=== PATIENT | male | born 1935 | race Two or more races ===

== ENCOUNTER 2024-07-21 19:31 | Inpatient (IN) | payer OTHER ==
[~2024-07-21] VITALS: Ht 180.3 cm; Wt 81.5 kg
--- NOTE | 2024-07-21 20:01 | ED.PDOC ---
Altered Mental Status HPI Comments 89-year-old male who came to ER via EMS due to altered level of consciousness. Per EMS, initial call for altered level of consciousness, as patient had a witnessed seizure like episode by family members followed by urinary incontinence and confusion/ disorientation. Patient has no history of seizures. Upon arrival of paramedics, patient now fully awake, currently complaining of back pains, flank pains, dysuria and foul smelling urine. Patient does have history of hypertension and recurrent UTIs. Chief Complaint: ALOC Time Seen by MD: 20:01 Reviewed Notes: Nurses Notes Allergies: Coded Allergies: NO KNOWN ALLERGIES (Unverified , 07/21/24) Information Source: Patient Mode of Arrival: EMS Severity: Moderate Timing: Minutes Duration: Minutes Prehospital treatment: None Quality: Decreased Alertness, Change in Behavior, Confusion Recent: None History of: None Associated Signs and Symptoms: None Past Medical History PAST MEDICAL HISTORY: HTN, UTI'S Surgical History: Pacemaker Family History Family History: Reviewed,noncontributory to illness Social History Smoker: Non-Smoker Alcohol: Denies ETOH Use Drugs: Denies Drug Use Lives In: Home Constitutional: denies: chills, diaphoresis, fatigue, fever, malaise, sweats, weakness, others EENTM: denies: blurred vision, double vision, ear bleeding, ear discharge, ear drainage, ear pain, ear ringing, eye pain, eye redness, hearing loss, mouth pain, mouth swelling, nasal discharge, nose bleeding, nose congestion, nose pain, photophobia, tearing, throat pain, throat swelling, voice changes, others Respiratory: denies: cough, hemoptysis, orthopnea, SOB at rest, shortness of breath, SOB with excertion, stridor, wheezing, others Cardiovascular: denies: chest pain, dizzy spells, diaphoresis, Dyspnea on exertion, edema, irregular heart beat, left arm pain, lightheadedness, palpitations, PND, syncope, others Gastrointestinal: denies: abdomen distended, abdominal pain, blood streaked bowels, constipated, diarrhea, dysphagia, difficulty swallowing, hematemesis, melena, nausea, poor appetite, poor fluid intake, rectal bleeding, rectal pain, vomiting, others Genitourinary: reports: dysuria, flank pain, others (Foul-smelling urine); denies: burning, frequency, hematuria, incontinence, penile discharge, penile sore, pain, testicle pain, testicle swelling, urgency Neurological: denies: dizziness, fainting, headache, left sided numbness, left sided weakness, numbness, paresthesia, pre-existing deficit, right sided numbness, right sided weakness, seizure, speech problems, tingling, tremors, weakness, others Musculoskeletal: reports: back pain; denies: gout, joint pain, joint swelling, muscle pain, muscle stiffness, neck pain, others Integumetry: denies: bruises, change in color, change in hair/nails, dryness, laceration, lesions, lumps, rash, wounds, others Allergic/Immunocompromised: denies: Difficulty Healing, Frequent Infections, Hives, Itching, others Hematologic/Lymphatic: denies: anemia, blood clots, easy bleeding, easy bruising, swollen glands, others Endocrine: denies: excessive hunger, excessive sweating, excessive thirst, excessive urination, flushing, intolerance to cold, intolerance to heat, unexplained weight gain, unexplained weight loss, others Psychiatric: denies: anxiety, bipolar disorder, depression, hopeless, panic disorder, schizophrenia, sleepless, suicidal, others Physical Exam General Appearance: No Apparent Distress, Normal HEENT: Normal ENT Inspection, Pharynx Normal, TMs Normal Neck: Full Range of Motion, Non-Tender, Normal, Normal Inspection Respiratory: Chest Non-Tender, Lungs Clear, No Accessory Muscle Use, No Respiratory Distress, Normal Breath Sounds Cardiovascular: No Edema, No JVD, No Murmur, No Gallop, Normal Peripheral Pulses, Regular Rate/Rhythm Breast Exam: Deferred Gastrointestinal: No Organomegaly, Non Tender, No Pulsatile Mass, Normal Bowel Sounds, Soft Genitalia: Deferred Pelvic: Deferred Rectal: Deferred Extremities: No calf tenderness, Normal capillary refill, Normal inspection, Normal range of motion, Non-tender, No pedal edema Musculoskeletal : Apperance: Normal Neurologic: Alert, senior education specialist II-XII nml as Tested, No Motor Deficits, Normal Affect, Normal Mood, No Sensory Deficits Cerebellar Function: Normal Reflexes: Normal Skin: Dry, Normal Color, Warm Lymphatic: No Adenopathy Was a procedure done? Was a procedure done?: No Differential Diagnosis (ALOC) Differential Diagnosis: Dehydration, Encephalopathy, Sepsis, Hypoxemia, Seizure, Renal Failure X-Ray, Labs, Meds, VS Vital Signs Date Time Temp Pulse Resp B/P (MAP) Pulse Ox O2 Delivery O2 Flow Rate FiO2 07/21/24 19:31 97.9 88 20 130/82 (98) 97 Lab Test 07/21/24 20:55 Range/Units White Blood Count 6.1 4.4-10.8 10^3/uL Red Blood Count 5.04 4.5-5.90 10^6/uL Hemoglobin 12.4 L 13.5-17.5 g/dL Hematocrit 38.5 L 41.0-53.0 % Mean Corpuscular Volume 76.4 L 80.0-100.0 fL Mean Corpuscular Hemoglobin 24.6 L 28.0-32.0 pg Mean Corpuscular Hemoglobin Concent 32.3 32.0-36.0 g/dL Red Cell Distribution Width 17.4 H 11.8-14.3 % Platelet Count 139 L 140-450 10^3/uL Mean Platelet Volume 7.5 6.9-10.8 fL Neutrophils (%) (Auto) 70.2 37.0-80.0 % Lymphocytes (%) (Auto) 18.8 10.0-50.0 % Monocytes (%) (Auto) 9.2 0.0-12.0 % Eosinophils (%) (Auto) 1.4 0.0-7.0 % Basophils (%) (Auto) 0.4 0.0-2.0 % Neutrophils # (Auto) 4.3 1.6-8.6 10 ^3/uL Lymphocytes # (Auto) 1.1 0.4-5.4 10 ^3/uL Monocytes # (Auto) 0.6 0-1.3 10 ^3/uL Eosinophils # (Auto) 0.1 0-0.8 10 ^3/uL Basophils # (Auto) 0 0-0.2 10 ^3/uL Nucleated Red Blood Cells 0.1 % Prothrombin Time 10.9 9.3-11.8 sec Prothrombin Time INR 1.03 0.9-1.15 Activated Partial Thromboplast Time 25.1 24.5-34.5 SEC Sodium Level 142 136-145 mmol/L Potassium Level 3.9 3.5-5.1 mmol/L Chloride Level 111 H 98-107 mmol/L Carbon Dioxide Level 24 20-31 mmol/L Anion Gap 7 5-15 Blood Urea Nitrogen 14 9-23 mg/dL Creatinine 1.61 H 0.700-1.30 mg/dL Glomerular Filtration Rate Calc 41 >90 mL/min BUN/Creatinine Ratio 8.7 L 10.0-20.0 Serum Glucose 122 H 74-106 mg/dL Lactic Acid Level 1.1 0.4-2.0 mmol/L Calcium Level 9.1 8.7-10.4 mg/dL Magnesium Level 2.1 1.6-2.6 mg/dL Total Bilirubin 0.4 0.2-1.0 mg/dL Aspartate Amino Transferase (AST) 15 13-40 U/L Alanine Aminotransferase (ALT) 18 7-40 U/L Alkaline Phosphatase 61 46-116 U/L Total Protein 6.2 5.7-8.2 g/dL Albumin 3.8 3.2-4.8 g/dL CT HEAD WITHOUT CONTRAST INDICATION: ALOC COMPARISON: None TECHNIQUE: CT of the head without intravenous contrast. RADIATION DOSE: CTDIvol: 58.67 mGy, DLP: 921.44 mGy*cm FINDINGS: There is no evidence of acute intracranial hemorrhage, extra-axial collection, mass effect, midline shift, herniation or hydrocephalus. The ventricles, sulci and cisterns are age appropriate. The benitez-white differentiation is intact. The visualized paranasal sinuses and mastoid air cells are clear. The surrounding soft tissues and osseous structures are unremarkable. IMPRESSION: 1. No evidence of acute intracranial hemorrhage, mass effect or hydrocephalus. Exam: CT CT AB PEL WO CON-NO ORAL OR IV History: left flank pain Comparison Study: None Technique: Multidetector spiral CT of the abdomen was performed from lung bases to pubic symphysis. Imaging was performed without IV contrast. Axial, coronal and sagittal multiplanar reformats were obtained from the axial data set by the technologist. Radiation Dose : 1. Abdomen/Pelvis: CTDIvol 8 mGy, DLP 415.22 mGy*cm. Findings: Evaluation of solid organs is limited due to lack of intravenous contrast use. Lung Bases: No acute or significant lung base finding. Normal heart size. No pleural or pericardial effusion. Liver: The liver is normal in size. No focal lesions. Gallbladder and Biliary Tree: Unremarkable Spleen: Unremarkable Pancreas: The pancreas is grossly normal in appearance. Adrenal Glands: Unremarkable Kidneys: Kidneys are grossly normal without calculi or hydronephrosis. Bilateral renal cysts. Bladder: Grossly unremarkable for degree of distention. Bowel: The stomach is grossly normal in appearance. Small bowel and colon are normal in caliber and distribution. Normal appendix is visualized in the right lower quadrant without findings of appendicitis. Ascites: Absent Lymphadenopathy: No mesenteric, retroperitoneal or periportal lymphadenopathy. Abdominal Wall and Mesentery: Unremarkable. Vasculature: The visualized abdominal aorta is normal in size and caliber. Evaluation of abdominal and pelvic vessels is limited due to lack of intravenous contrast. Pelvic Organs: Prostatomegaly measuring 6.3 cm in transverse dimension. Musculoskeletal: No aggressive focal bony lesions, acute fractures or dislocation. IMPRESSION: 1. No acute abdominal or pelvic findings. 2. Prostatomegaly EXAM: XY CHEST PORTABLE TECHNIQUE: Single frontal chest radiograph CLINICAL HISTORY: weakness COMPARISON: None Findings/Impression: Frontal chest radiograph demonstrates no acute osseous or superficial soft tissue abnormalities. Left chest wall dual chamber pacemaker. The trachea is midline. The cardiac silhouette and mediastinum are within normal limits. No pneumothorax, pleural effusions, or consolidations. Time of 1ST Reevaluation: 19:56 Reevaluation 1ST: Unchanged Time of 2ND Reevaluation: 22:09 Reevaluation 2ND: Unchanged Patient Education/Counseling: Diagnosis, Treatment Family Education/Counseling: No Family Present Departure 1 Departure Time of Disposition: 22:09 Impression: Primary Impression: Acute encephalopathy Additional Impression: Pyelonephritis Disposition: ADMITTED INPATIENT Condition: Guarded Critical Care Note Critical Care Time?: Yes (35 min-critical care time only) Critical care comment: Altered level of consciousness Total critical care time: Approximately 36 minutes Due to a high probability of clinically significant, life threatening deterioration, the patient required my highest level of preparedness to intervene emergently and I personally spent this critical care time directly and personally managing the patient. This critical care time included obtaining a history; examining the patient; pulse oximetry; ordering and review of studies; arranging urgent treatment with development of a management plan; evaluation of patient's response to treatment; frequent reassessment; and, discussions with other providers. This critical care time was performed to assess and manage the high probability of imminent, life-threatening deterioration that could result in multi-organ failure. It was exclusive of separately billable procedures and treating other patients. Stability Stability form required: No Heart Score Heart Score: Heart Score Response (Comments) Value History N/A 0 EKG N/A 0 Age N/A 0 Risk Factors N/A 0 Troponin N/A 0 Total 0 I personally scribed for JACQUELINE AG MD ([email or web address]) on 07/21/24 at 20:01. Electronically submitted by Souleymane Caceres ([facility] I personally scribed for JACQUELINE AG MD ([email or web address]) on 07/21/24 at 20:47. Electronically submitted by Souleymane Caceres ([facility] JACQUELINE AG MD Jul 21, 2024 20:01
--- NOTE | 2024-07-21 20:17 | DVH ---
CT HEAD WITHOUT CONTRAST INDICATION: ALOC COMPARISON: None TECHNIQUE: CT of the head without intravenous contrast. RADIATION DOSE: CTDIvol: 58.67 mGy, DLP: 921.44 mGy*cm FINDINGS: There is no evidence of acute intracranial hemorrhage, extra-axial collection, mass effect, midline s hift, herniation or hydrocephalus. The ventricles, sulci and cisterns are age appropriate. The benitez -white differentiation is intact. The visualized paranasal sinuses and mastoid air cells are clear. The surrounding soft tissues and osseous structures are unremarkable. IMPRESSION: 1. No evidence of acute intracranial hemorrhage, mass effect or hydrocephalus.
--- NOTE | 2024-07-21 20:17 | DVH ---
EXAM: XY CHEST PORTABLE TECHNIQUE: Single frontal chest radiograph CLINICAL HISTORY: weakness COMPARISON: None Findings/Impression: Frontal chest radiograph demonstrates no acute osseous or superficial soft tissue abnormalities. Left chest wall dual chamber pacemaker. The trachea is midline. The cardiac silhouette and mediastinum are within normal limits. No pneumothorax, pleural effusions, or consolidations.
--- NOTE | 2024-07-21 20:22 | DVH ---
Exam: CT CT AB PEL WO CON-NO ORAL OR IV History: left flank pain Comparison Study: None Technique: Multidetector spiral CT of the abdomen was performed from lung bases to pubic symphysis. Imaging was performed without IV contrast. Axial, coronal and sagittal multiplanar reformats were ob tained from the axial data set by the technologist. Radiation Dose : 1. Abdomen/Pelvis: CTDIvol 8 mGy, DLP 415.22 mGy*cm. Findings: Evaluation of solid organs is limited due to lack of intravenous contrast use. Lung Bases: No acute or significant lung base finding. Normal heart size. No pleural or pericardial effusion. Liver: The liver is normal in size. No focal lesions. Gallbladder and Biliary Tree: Unremarkable Spleen: Unremarkable Pancreas: The pancreas is grossly normal in appearance. Adrenal Glands: Unremarkable Kidneys: Kidneys are grossly normal without calculi or hydronephrosis. Bilateral renal cysts. Bladder: Grossly unremarkable for degree of distention. Bowel: The stomach is grossly normal in appearance. Small bowel and colon are normal in caliber and d istribution. Normal appendix is visualized in the right lower quadrant without findings of appendici tis. Ascites: Absent Lymphadenopathy: No mesenteric, retroperitoneal or periportal lymphadenopathy. Abdominal Wall and Mesentery: Unremarkable. Vasculature: The visualized abdominal aorta is normal in size and caliber. Evaluation of abdominal a nd pelvic vessels is limited due to lack of intravenous contrast. Pelvic Organs: Prostatomegaly measuring 6.3 cm in transverse dimension. Musculoskeletal: No aggressive focal bony lesions, acute fractures or dislocation. IMPRESSION: 1. No acute abdominal or pelvic findings. 2. Prostatomegaly Radiation optimization: All CT scans at this facility use at least one of these dose optimization josi hniques: automated exposure control mA and/or kV adjustment per patient size (includes targeted exam s where dose is matched to clinical indication) or iterative reconstruction.
[2024-07-21 21:19] LABS: Basophils # (auto) 0 10 ^3/uL (0-0.2); Eosinophils # (auto) 0.1 10 ^3/uL (0-0.8); Lymphocytes # (auto) 1.1 10 ^3/uL (0.4-5.4); Mean Corpuscular Hemoglobin 24.6 pg (28.0-32.0); Nucleated Red Blood Cells % 0.1 %; Red Cell Distribution Width 17.4 % (11.8-14.3)
[2024-07-21 21:22] LABS: Basophils % (auto) 0.4 % (0.0-2.0); Eosinophils % (auto) 1.4 % (0.0-7.0); Hematocrit 38.5 % (41.0-53.0); Hemoglobin 12.4 g/dL (13.5-17.5); Lymphocytes % (auto) 18.8 % (10.0-50.0); Mean Corpuscular Hgb Conc. 32.3 g/dL (32.0-36.0); Mean Corpuscular Volume 76.4 fL (80.0-100.0); Monocytes # (auto) 0.6 10 ^3/uL (0-1.3); Monocytes % (auto) 9.2 % (0.0-12.0); Neutrophils # (auto) 4.3 10 ^3/uL (1.6-8.6); Neutrophils % (auto) 70.2 % (37.0-80.0); Platelet Count (auto) 139 10^3/uL (140-450); Red Blood Cells 5.04 10^6/uL (4.5-5.90); White Blood Cell 6.1 10^3/uL (4.4-10.8)
[2024-07-21 21:30] LABS: Alanine Aminotransferase 18 U/L (7-40); Albumin 3.8 g/dL (3.2-4.8); Alkaline Phosphatase 61 U/L (46-116); Anion Gap 7 (5-15); Aspartate Aminotransferase 15 U/L (13-40); BUN/Creatinine Ratio 8.7 (10.0-20.0); Blood Urea Nitrogen 14 mg/dL (9-23); Calcium 9.1 mg/dL (8.7-10.4); Carbon Dioxide 24 mmol/L (20-31); Magnesium 2.1 mg/dL (1.6-2.6); Potassium 3.9 mmol/L (3.5-5.1); Sodium 142 mmol/L (136-145)
[2024-07-21 21:31] LABS: Bilirubin, Total 0.4 mg/dL (0.2-1.0); Total Protein 6.2 g/dL (5.7-8.2)
[2024-07-21 21:34] LABS: Chloride 111 mmol/L (98-107); Glucose 122 mg/dL (74-106)
[2024-07-21 21:35] LABS: INR 1.03 (0.9-1.15); Partial Thromboplastin Time 25.1 SEC (24.5-34.5); Prothrombin Time 10.9 sec (9.3-11.8)
[2024-07-22] VITALS: PULSE 60; RESP 14; O2SAT 94
[2024-07-22] MEDS: SODIUM CHLORIDE 0.9% 1,000 ML IVB ONE (00:33)
[2024-07-22] MEDS: cefTRIAXone 1GM/50ML D5W 50 ML IV ONE (00:33)
[2024-07-22 04:48] LABS: Urine Bacteria None Seen /hpf (None Seen)
[2024-07-22 05:04] LABS: Urine Blood Negative /uL (Negative); Urine Clarity Clear (Clear); Urine Color Light-Yellow (Yellow); Urine Mucus FEW (None Seen); Urine Protein, UAD Negative (Negative); Urine Specific Gravity 1.016 (1.001-1.035); Urine Squamous Epithelial Cell FEW /hpf (<5); Urine Urobilinogen Normal (Negative); Urine WBC 1 /hpf (0 - 3); Urine pH 7.5 (5.0-9.0)
--- NOTE | 2024-07-22 07:08 | DVHHP2 ---
History of Present Illness Reason for Visit: Weakness History of Present Illness Rodriguez Cartagena is an 89-year-old male with past medical history of hypertension, frequent UTIs, pacemaker, and hernia repair who presents to the ED for altered mental status. Per spouse Arabella and patient she reports that the patient was on a bar chair at home started shaking and becoming diaphoretic lasted for about 1 minute. Patient son stated that the patient came to shortly afterwards and asked what happened. Patient states that he was treated a week ago with antibiotics on July 11 for a week for a UTI and completed the full course. Patient states that he had back pain, flank pain, dysuria, and foul-smelling urine however he stated that his symptoms are better. Patient reports that he also had a pacemaker placed in at [facility] in January of 2024. Patient reports that he is compliant with his medications. Patient also reports that he uses a cane to ambulate. Patient denies chest pain, shortness of breath, nausea, vomiting, diarrhea, abdominal pain, lightheadedness, and dizziness. Cardiovascular: HTN Past Surgical History: Hernia Repair Past Surgical History PM Smoke: Quit ALCOHOL: none Drugs: None Lives: with Family Domestic Violence: Neg Review of Systems Constitutional: Yes: Weakness; No: Fever, Chills, Sweats, Malaise, Other Eyes: No: Pain, Vision change, Conjunctivae inflammation, Eyelid inflammation, Other, Redness ENT: No: Ear pain, Ear discharge, Nose pain, Nose discharge, Nose congestion, Mouth pain, Mouth swelling, Throat pain, Throat swelling, Other Respiratory: No: Cough, Dry, Shortness of breath, SOB with excertion, Wheezing, Hemoptysis, Pleuritic Pain, Sputum, Wheezing, Other Cardiovascular: No: Chest Pain, Palpitations, Orthopnea, Paroxysmal Noc. Dyspnea, Edema, Lt Headedness, Other Gastrointestinal: No: Nausea, Vomiting, Abdominal Pain, Diarrhea, Constipation, Melena, Hematochezia, Other Genitourinary: No Dysuria, No Frequency, No Incontinence, No Hematuria, No Retention, No Other Musculoskeletal: No: other, neck pain, shoulder pain, arm pain, back pain, hand pain, leg pain, foot pain Skin: No: Rash, Lesions, Jaundice, Bruising, Other Neurological: No: Weakness, Numbness, Incoordination, Change in speech, Confusion, Seizures, Other Allergies: Coded Allergies: NO KNOWN ALLERGIES (Unverified , 07/21/24) Exam Vital Signs Vital Signs Date Time Temp Pulse Resp B/P (MAP) Pulse Ox O2 Delivery O2 Flow Rate FiO2 07/22/24 06:00 61 14 152/65 (94) 96 07/22/24 00:00 Room Air* 0 21 07/22/24 00:00 98.2 98.2 General Appearance: Alert, Oriented X3, Cooperative, No acute distress HEENT: Atraumatic, PERRLA, EOMI, Mucous membr. moist/pink Respiratory: Clear to auscultation, Normal air movement Cardiovascular: Regular rate, Normal S1, Normal S2, No murmurs Abdominal: Normal bowel sounds, Soft, No tenderness, No hepatospenomegaly, No masses Extremities: No clubbing, No cyanosis, No edema, Normal pulses, No tenderness/swelling Skin: No rashes, No breakdown, No significant lesion Neuro: Normal gait, Normal speech, Strength at 5/5 X4 ext, Normal tone, Sensation intact Psych/Mental Status: Mental status NL, Mood NL Labs/Xrays Labs Test 07/22/24 04:25 07/21/24 20:55 Range/Units Urine Color Light-yellow Yellow Urine Clarity Clear Clear Urine pH 7.5 5.0-9.0 Urine Specific [place] 1.016 1.001-1.035 Urine Protein Negative Negative Urine Ketones Negative Negative Urine Blood Negative Negative /uL Urine Nitrite Negative Negative Urine Bilirubin Negative Negative Urine Urobilinogen Normal Negative mg/dL Urine Leukocyte Esterase Negative Negative /uL Urine RBC <1 0 - 3 /hpf Urine WBC 1 0 - 3 /hpf Urine Squamous Epithelial Cells Few <5 /hpf Urine Bacteria None seen None Seen /hpf Urine Mucus Few None Seen Urine Glucose Normal Normal mg/dL White Blood Count 6.1 4.4-10.8 10^3/uL Red Blood Count 5.04 4.5-5.90 10^6/uL Hemoglobin 12.4 L 13.5-17.5 g/dL Hematocrit 38.5 L 41.0-53.0 % Mean Corpuscular Volume 76.4 L 80.0-100.0 fL Mean Corpuscular Hemoglobin 24.6 L 28.0-32.0 pg Mean Corpuscular Hemoglobin Concent 32.3 32.0-36.0 g/dL Red Cell Distribution Width 17.4 H 11.8-14.3 % Platelet Count 139 L 140-450 10^3/uL Mean Platelet Volume 7.5 6.9-10.8 fL Neutrophils (%) (Auto) 70.2 37.0-80.0 % Lymphocytes (%) (Auto) 18.8 10.0-50.0 % Monocytes (%) (Auto) 9.2 0.0-12.0 % Eosinophils (%) (Auto) 1.4 0.0-7.0 % Basophils (%) (Auto) 0.4 0.0-2.0 % Neutrophils # (Auto) 4.3 1.6-8.6 10 ^3/uL Lymphocytes # (Auto) 1.1 0.4-5.4 10 ^3/uL Monocytes # (Auto) 0.6 0-1.3 10 ^3/uL Eosinophils # (Auto) 0.1 0-0.8 10 ^3/uL Basophils # (Auto) 0 0-0.2 10 ^3/uL Nucleated Red Blood Cells 0.1 % Prothrombin Time 10.9 9.3-11.8 sec Prothrombin Time INR 1.03 0.9-1.15 Activated Partial Thromboplast Time 25.1 24.5-34.5 SEC Sodium Level 142 136-145 mmol/L Potassium Level 3.9 3.5-5.1 mmol/L Chloride Level 111 H 98-107 mmol/L Carbon Dioxide Level 24 20-31 mmol/L Anion Gap 7 5-15 Blood Urea Nitrogen 14 9-23 mg/dL Creatinine 1.61 H 0.700-1.30 mg/dL Glomerular Filtration Rate Calc 41 >90 mL/min BUN/Creatinine Ratio 8.7 L 10.0-20.0 Serum Glucose 122 H 74-106 mg/dL Lactic Acid Level 1.1 0.4-2.0 mmol/L Calcium Level 9.1 8.7-10.4 mg/dL Magnesium Level 2.1 1.6-2.6 mg/dL Total Bilirubin 0.4 0.2-1.0 mg/dL Aspartate Amino Transferase (AST) 15 13-40 U/L Alanine Aminotransferase (ALT) 18 7-40 U/L Alkaline Phosphatase 61 46-116 U/L Total Protein 6.2 5.7-8.2 g/dL Albumin 3.8 3.2-4.8 g/dL CT HEAD WITHOUT CONTRAST INDICATION: ALOC COMPARISON: None TECHNIQUE: CT of the head without intravenous contrast. RADIATION DOSE: CTDIvol: 58.67 mGy, DLP: 921.44 mGy*cm FINDINGS: There is no evidence of acute intracranial hemorrhage, extra-axial collection, mass effect, midline shift, herniation or hydrocephalus. The ventricles, sulci and cisterns are age appropriate. The benitez-white differentiation is intact. The visualized paranasal sinuses and mastoid air cells are clear. The surrounding soft tissues and osseous structures are unremarkable. IMPRESSION: 1. No evidence of acute intracranial hemorrhage, mass effect or hydrocephalus. EXAM: XY CHEST PORTABLE TECHNIQUE: Single frontal chest radiograph CLINICAL HISTORY: weakness COMPARISON: None Findings/Impression: Frontal chest radiograph demonstrates no acute osseous or superficial soft tissue abnormalities. Left chest wall dual chamber pacemaker. The trachea is midline. The cardiac silhouette and mediastinum are within normal limits. No pneumothorax, pleural effusions, or consolidations. Exam: CT CT AB PEL WO CON-NO ORAL OR IV History: left flank pain Comparison Study: None Technique: Multidetector spiral CT of the abdomen was performed from lung bases to pubic symphysis. Imaging was performed without IV contrast. Axial, coronal and sagittal multiplanar reformats were obtained from the axial data set by the technologist. Radiation Dose : 1. Abdomen/Pelvis: CTDIvol 8 mGy, DLP 415.22 mGy*cm. Findings: Evaluation of solid organs is limited due to lack of intravenous contrast use. Lung Bases: No acute or significant lung base finding. Normal heart size. No pleural or pericardial effusion. Liver: The liver is normal in size. No focal lesions. Gallbladder and Biliary Tree: Unremarkable Spleen: Unremarkable Pancreas: The pancreas is grossly normal in appearance. Adrenal Glands: Unremarkable Kidneys: Kidneys are grossly normal without calculi or hydronephrosis. Bilateral renal cysts. Bladder: Grossly unremarkable for degree of distention. Bowel: The stomach is grossly normal in appearance. Small bowel and colon are normal in caliber and distribution. Normal appendix is visualized in the right lower quadrant without findings of appendicitis. Ascites: Absent Lymphadenopathy: No mesenteric, retroperitoneal or periportal lymphadenopathy. Abdominal Wall and Mesentery: Unremarkable. Vasculature: The visualized abdominal aorta is normal in size and caliber. Evaluation of abdominal and pelvic vessels is limited due to lack of intravenous contrast. Pelvic Organs: Prostatomegaly measuring 6.3 cm in transverse dimension. Musculoskeletal: No aggressive focal bony lesions, acute fractures or dislocation. IMPRESSION: 1. No acute abdominal or pelvic findings. 2. Prostatomegaly Assessment/Plan Assessment/Plan Assessment/Plan: Acute encephalopathy Thrombocytopenia Monitor UA negative Ceftriaxone given by ED IV fluids given by ED CT head negative Chest x-ray negative CT abdomen pelvis negative labs A.m. labs antiemetics ekg Echo History of pacemaker Monitor on tele Was placed by [facility] in January of 2024 per spouse Arabella ECHO ISHA on CKD 3 Nephrology consult Prostatomegaly Follow-up with outpatient [facility] FEN/PPX: diet IV fluids dvt ppx - Lovenox PUD ppx not indicated no hx of GERD Discussed plan of care with patient and nurse Admit to telemetry Home medications reconciled Plan discussed with: Patient, Spouse My Orders Orders - JONATHAN HANDLEY Procedure Category Date Status Time *Dr. [facility] CONS 07/22/24 Verified -[place] 07:03 Date of Service: Jul 22, 2024 Billing Provider: JONATHAN HANDLEY Common Visit Codes: 94848-BCDHDET INP/OBS CARE (HIGH) JONATHAN HANDLEY Jul 22, 2024 07:08
[2024-07-22] MEDS: SODIUM CHLORIDE 0.9% 1,000 ML IV SCH (07:15)
[2024-07-22] MEDS ORDERED: ACETAMINOPHEN 325 MG TAB PO PRN (07:15)
[2024-07-22] MEDS ORDERED: ONDANSETRON HCL 4 MG/2 ML VIAL IV PRN (07:15)
[2024-07-22] MEDS ORDERED: HYDROcodone-ACET 5/325MG TAB PO PRN (07:15)
[2024-07-22 10:03] LABS: Potassium 3.9 mmol/L (3.5-5.1); Sodium 141 mmol/L (136-145)
[2024-07-22 10:04] LABS: Anion Gap 6 (5-15); Carbon Dioxide 24 mmol/L (20-31)
[2024-07-22 10:09] LABS: BUN/Creatinine Ratio 9.8 (10.0-20.0); Blood Urea Nitrogen 14 mg/dL (9-23); Glucose 96 mg/dL (74-106)
[2024-07-22 10:11] LABS: Calcium 8.7 mg/dL (8.7-10.4); Chloride 111 mmol/L (98-107)
--- NOTE | 2024-07-22 10:29 | DVHINCON2 ---
Date of service: Jul 22, 2024 Referring Physician Hospitalist Reason for Consultation Acute kidney injury History of Present Illness 89-year-old male presents to the hospital brought in by family due to altered mental status after witnessed seizure-like activity. Nephrology consulted for elevated creatinine level. There is no previous labs to obtain baseline renal function. Allergies: Coded Allergies: NO KNOWN ALLERGIES (Unverified , 07/21/24) Current Medications Current Medications Medications (Trade) Dose Ordered Sig/Porsha Route PRN Reason Start Time Stop Time Status Last Admin Sodium Chloride 1,000 ml @ 60 mls/hr [id number] IV 07/22/24 07:15 07/22/24 07:15 Acetaminophen/ Hydrocodone Bitart ([place] 5/325MG Tab) 1 tab Q4HP PRN PO MODERATE PAIN (4-6 PAIN SCALE) 07/22/24 07:15 Ondansetron HCl (Zofran) 4 mg Q4HP PRN IV NAUSEA / VOMITING 07/22/24 07:15 Enoxaparin Sodium (Lovenox) 30 mg DAILY SC 07/22/24 10:00 Acetaminophen (Tylenol Tablet) 650 mg Q6HP PRN PO PAIN SCALE 1-3 OR TEMP>100.4 07/22/24 07:15 Review of Systems Altered mental status H&P Exam Vital Signs/I&O Vital Sign Date Time Temp Pulse Resp B/P (MAP) Pulse Ox O2 Delivery O2 Flow Rate FiO2 07/22/24 07:17 61 14 152/65 (94) 96 07/22/24 00:00 Room Air* 0 21 07/22/24 00:00 98.2 98.2 Intake and Output 07/21/24 07/22/24 19:00 07:00 Intake Total 1050 ml Balance 1050 ml Intake IV Total 1050 ml Physical Exam Elderly male Nonacute distress Regular rate and rhythm Abdomen is soft No pitting edema Labs/Diagnostic Data Labs/Diagnostic Data Laboratory Tests Test 07/22/24 09:16 07/22/24 04:25 07/21/24 20:55 Range/Units Sodium Level 141 142 136-145 mmol/L Potassium Level 3.9 3.9 3.5-5.1 mmol/L Chloride Level 111 H 111 H 98-107 mmol/L Carbon Dioxide Level 24 24 20-31 mmol/L Anion Gap 6 7 5-15 Blood Urea Nitrogen 14 14 9-23 mg/dL Creatinine 1.43 H 1.61 H 0.700-1.30 mg/dL Glomerular Filtration Rate Calc 47 41 >90 mL/min BUN/Creatinine Ratio 9.8 L 8.7 L 10.0-20.0 Serum Glucose 96 122 H 74-106 mg/dL Calcium Level 8.7 9.1 8.7-10.4 mg/dL Urine Color Light-yellow Yellow Urine Clarity Clear Clear Urine pH 7.5 5.0-9.0 Urine Specific [place] 1.016 1.001-1.035 Urine Protein Negative Negative Urine Ketones Negative Negative Urine Blood Negative Negative /uL Urine Nitrite Negative Negative Urine Bilirubin Negative Negative Urine Urobilinogen Normal Negative mg/dL Urine Leukocyte Esterase Negative Negative /uL Urine RBC <1 0 - 3 /hpf Urine WBC 1 0 - 3 /hpf Urine Squamous Epithelial Cells Few <5 /hpf Urine Bacteria None seen None Seen /hpf Urine Mucus Few None Seen Urine Glucose Normal Normal mg/dL White Blood Count 6.1 4.4-10.8 10^3/uL Red Blood Count 5.04 4.5-5.90 10^6/uL Hemoglobin 12.4 L 13.5-17.5 g/dL Hematocrit 38.5 L 41.0-53.0 % Mean Corpuscular Volume 76.4 L 80.0-100.0 fL Mean Corpuscular Hemoglobin 24.6 L 28.0-32.0 pg Mean Corpuscular Hemoglobin Concent 32.3 32.0-36.0 g/dL Red Cell Distribution Width 17.4 H 11.8-14.3 % Platelet Count 139 L 140-450 10^3/uL Mean Platelet Volume 7.5 6.9-10.8 fL Neutrophils (%) (Auto) 70.2 37.0-80.0 % Lymphocytes (%) (Auto) 18.8 10.0-50.0 % Monocytes (%) (Auto) 9.2 0.0-12.0 % Eosinophils (%) (Auto) 1.4 0.0-7.0 % Basophils (%) (Auto) 0.4 0.0-2.0 % Neutrophils # (Auto) 4.3 1.6-8.6 10 ^3/uL Lymphocytes # (Auto) 1.1 0.4-5.4 10 ^3/uL Monocytes # (Auto) 0.6 0-1.3 10 ^3/uL Eosinophils # (Auto) 0.1 0-0.8 10 ^3/uL Basophils # (Auto) 0 0-0.2 10 ^3/uL Nucleated Red Blood Cells 0.1 % Prothrombin Time 10.9 9.3-11.8 sec Prothrombin Time INR 1.03 0.9-1.15 Activated Partial Thromboplast Time 25.1 24.5-34.5 SEC Lactic Acid Level 1.1 0.4-2.0 mmol/L Magnesium Level 2.1 1.6-2.6 mg/dL Total Bilirubin 0.4 0.2-1.0 mg/dL Aspartate Amino Transferase (AST) 15 13-40 U/L Alanine Aminotransferase (ALT) 18 7-40 U/L Alkaline Phosphatase 61 46-116 U/L Total Protein 6.2 5.7-8.2 g/dL Albumin 3.8 3.2-4.8 g/dL Assessment Acute kidney injury likely hemodynamic Baseline renal function is unknown Altered mental status Suspected seizure Status post IV fluids Recommend rule out infection Neurologic workup Avoid hypotension Strict Is&Os CT imaging unremarkable for any kidney pathology Avoid nonsteroidal anti-inflammatory drugs and avoid contrast agents Plan discussed with: Other STALIN WOLF MD Jul 22, 2024 10:29
[2024-07-22] MEDS ORDERED: hydrALAZINE HCL 20 MG/ML VL IV PRN (10:45)
[2024-07-22] MEDS: ENOXAPARIN SOD 30 MG/0.3 ML SYRINGE SC SCH (11:03)
[2024-07-22 13:06] LABS: Erythrocyte Sedimentation Rate 4 mm/hr (0-20)
[2024-07-22 16:29] VITALS: BP 143/66; PULSE 60; RESP 16; TEMP 98.2; O2SAT 98
[2024-07-22] MEDS: TAMSULOSIN HYDROCHLORIDE 0.4 MG CAP PO SCH (18:09)
[2024-07-22 20:00] VITALS: PULSE 89
[2024-07-22 21:00] VITALS: BP 157/52; PULSE 70; RESP 16; TEMP 98.2; O2SAT 96
[2024-07-22] MEDS ORDERED: TAMS0.4C39 PO (21:40)
[2024-07-22] MEDS ORDERED: CLOP75TA70 PO (21:40)
[2024-07-22] MEDS ORDERED: DORZ2SOL18 EACHEYE (21:40)
[2024-07-22] MEDS ORDERED: LOS25T PO (21:40)
[2024-07-22] MEDS ORDERED: BRIM0.2S17 EACHEYE (21:40)
[2024-07-22] MEDS ORDERED: LATA0.008 EACHEYE (21:40)
[2024-07-22] MEDS ORDERED: ATOR40TA52 PO (21:40)
[2024-07-22] MEDS ORDERED: FIN5T PO (21:40)
[2024-07-23] VITALS (8 sets, daily range): BP systolic 126–143; BP diastolic 51–66; PULSE 60–68; RESP 14–18; TEMP 97.5–98.2; O2SAT 93–98
[2024-07-23 08:14] LABS: Basophils # (auto) 0 10 ^3/uL (0-0.2); Hemoglobin 11.8 g/dL (13.5-17.5); Lymphocytes # (auto) 1.1 10 ^3/uL (0.4-5.4); Monocytes # (auto) 0.5 10 ^3/uL (0-1.3); Neutrophils # (auto) 3.2 10 ^3/uL (1.6-8.6); Platelet Count (auto) 140 10^3/uL (140-450)
[2024-07-23 08:18] LABS: Basophils % (auto) 0.4 % (0.0-2.0); Eosinophils # (auto) 0.1 10 ^3/uL (0-0.8); Hematocrit 36.9 % (41.0-53.0); Lymphocytes % (auto) 21.9 % (10.0-50.0); Mean Corpuscular Hemoglobin 24.3 pg (28.0-32.0); Mean Corpuscular Volume 75.8 fL (80.0-100.0); Monocytes % (auto) 9.6 % (0.0-12.0); Neutrophils % (auto) 65.1 % (37.0-80.0); Red Blood Cells 4.87 10^6/uL (4.5-5.90); Red Cell Distribution Width 17.3 % (11.8-14.3); White Blood Cell 4.9 10^3/uL (4.4-10.8)
[2024-07-23 08:27] LABS: Alanine Aminotransferase 11 U/L (7-40); Albumin 3.5 g/dL (3.2-4.8); Alkaline Phosphatase 58 U/L (46-116); Anion Gap 6 (5-15); Aspartate Aminotransferase 15 U/L (13-40); BUN/Creatinine Ratio 11.8 (10.0-20.0); Bilirubin, Total 0.4 mg/dL (0.2-1.0); Blood Urea Nitrogen 18 mg/dL (9-23); Carbon Dioxide 25 mmol/L (20-31); Glucose 88 mg/dL (74-106); Potassium 4.1 mmol/L (3.5-5.1); Sodium 141 mmol/L (136-145); Total Protein 5.8 g/dL (5.7-8.2)
[2024-07-23 08:45] LABS: Chloride 110 mmol/L (98-107)
[2024-07-23] MEDS: cefTRIAXone 1GM/50ML D5W 50 ML IV SCH (09:58)
--- NOTE | 2024-07-23 17:43 | DVHPN2 ---
Subjective denies any cough/denies any complaints Changes from previous H/P or p: No Changes Eyes: No Pain, No Vision change, No Conjunctivae inflammation, No Eyelid inflammation, No Other, No Redness ENT: No Ear pain, No Ear discharge, No Nose pain, No Nose discharge, No Nose congestion, No Mouth pain, No Mouth swelling, No Throat pain, No Throat swelling, No Other Cardiovascular: No Chest Pain, No Palpitations, No Orthopnea, No Paroxysmal Noc. Dyspnea, No Edema, No Lt Headedness, No Other Respiratory: No Cough, No Dry, No Shortness of breath, No SOB with excertion, No Wheezing, No Hemoptysis, No Pleuritic Pain, No Sputum, No Other Gastrointestinal: No Nausea, No Vomiting, No Abdominal Pain, No Diarrhea, No Constipation, No Melena, No Hematochezia, No Other Genitourinary: No Dysuria, No Frequency, No Incontinence, No Hematuria, No Retention, No Other Musculoskeletal: No other, No neck pain, No shoulder pain, No arm pain, No back pain, No hand pain, No leg pain, No foot pain Skin: No Rash, No Lesions, No Jaundice, No Bruising, No Other Objective Vitals Vital Signs Date Time Temp Pulse Resp B/P (MAP) Pulse Ox O2 Delivery O2 Flow Rate FiO2 07/23/24 16:53 97.8 68 16 135/66 (89) 97 97.8 07/23/24 08:00 Room Air* 0 21 Intake/Output Intake and Output 07/23/24 07:00 Intake Total 980 ml Balance 980 ml Intake Oral 500 ml IV Total 480 ml # Voids 4 # Bowel Movements 3 General Appearance: Alert, Oriented X3, Cooperative, No acute distress Lungs: Clear to auscultation Cardiovascular: Regular rate, Normal S1, Normal S2 Abdomen: Normal bowel sounds, Soft, No tenderness, No hepatospenomegaly Musculoskeletal: Normal sensory function, Normal motor function Neuro: Normal gait, Normal speech, Strength at 5/5 X4 ext, Normal tone, S ensation intact, Cranial nerves 3-12 NL Psych/Mental Status: Mental status NL, Mood NL Medications Current Medications Medications Dose Ordered Sig/Porsha Route Start Time Stop Time Status Last Admin Dose Admin Sodium Chloride 1,000 ml @ 60 mls/hr [id number] IV 07/22/24 07:15 07/23/24 17:17 60 MLS/HR Acetaminophen/ Hydrocodone Bitart 1 tab Q4HP PRN PO 07/22/24 07:15 Ondansetron HCl 4 mg Q4HP PRN IV 07/22/24 07:15 Acetaminophen 650 mg Q6HP PRN PO 07/22/24 07:15 Ceftriaxone Sodium 50 ml @ 100 mls/hr DAILY@09 IV 07/23/24 09:00 07/23/24 09:58 100 MLS/HR Tamsulosin HCl 0.4 mg QPM PO 07/22/24 18:00 07/23/24 17:16 0.4 MG Hydralazine HCl 10 mg Q6HP PRN IV 07/22/24 10:45 Enoxaparin Sodium 40 mg DAILY SC 07/24/24 10:00 Losartan Potassium 25 mg DAILY PO 07/24/24 10:00 UNV Atorvastatin Calcium 20 mg HS PO 07/23/24 22:00 UNV Finasteride 5 mg DAILY PO 07/24/24 10:00 UNV Brimonidine Tartrate 1 drop BID EACHEYE 07/23/24 22:00 UNV Latanoprost 1 drop HS EACHEYE 07/23/24 22:00 UNV Clopidogrel Bisulfate 75 mg DAILY PO 07/24/24 10:00 UNV Laboratory Results Laboratory Tests 07/23/24 07:33 Chemistry Test 07/23/24 07:33 Albumin 3.5 g/dL (3.2-4.8) Calcium Level 9.0 mg/dL (8.7-10.4) Total Protein 5.8 g/dL (5.7-8.2) LFT Test 07/23/24 07:33 Alanine Aminotransferase (ALT) 11 U/L (7-40) Alkaline Phosphatase 58 U/L (46-116) Aspartate Amino Transferase (AST) 15 U/L (13-40) Total Bilirubin 0.4 mg/dL (0.2-1.0) Urinalysis Test 07/22/24 04:25 Urine Color Light-yellow (Yellow) Urine Clarity Clear (Clear) Urine pH 7.5 (5.0-9.0) Urine Specific [place] 1.016 (1.001-1.035) Urine Protein Negative (Negative) Urine Ketones Negative (Negative) Urine Blood Negative /uL (Negative) Urine Nitrite Negative (Negative) Urine Bilirubin Negative (Negative) Urine Urobilinogen Normal mg/dL (Negative) Urine Leukocyte Esterase Negative /uL (Negative) Urine RBC <1 /hpf (0 - 3) Urine WBC 1 /hpf (0 - 3) Urine Squamous Epithelial Cells Few /hpf (<5) Urine Bacteria None seen /hpf (None Seen) Urine Mucus Few (None Seen) Urine Glucose Normal mg/dL (Normal) Microbiology Microbiology Date/Time Source Procedure Growth Status 07/21/24 20:55 Blood Blood Culture - Preliminary NO GROWTH AFTER 24 HOURS OF INCUBATION. Resulted Labs and/or images reviewed: Labs reviewed by me, Image(s) reviewed by me Assessment/Plan Assessment/Plan ? jerky movements- no associated symptoms of seizures/seen by neuro on line today/notes pending pacemaker status htn bph Plan discussed with: Patient, Spouse My Orders Orders - ANA COYLE MD Procedure Category Date Status Time Losartan Tablet PHA 07/23/24 Logged (Cozaar Tablet) 17:30 Losartan Tablet PHA 07/24/24 Logged (Cozaar Tablet) 10:00 Atorvastatin (Lipitor) PHA 07/23/24 Logged 22:00 Finasteride Tablet PHA 07/24/24 Logged (Proscar Tablet) 10:00 Finasteride Tablet PHA 07/23/24 Logged (Proscar Tablet) 17:30 Brimonidine 0.2% Opth PHA 07/23/24 Logged Soln (Alphagan 0.2 22:00 Latanoprost (Xalatan) PHA 07/23/24 Logged 22:00 Clopidogrel Bisulfate PHA 07/23/24 Logged (Plavix) 17:30 Clopidogrel Bisulfate PHA 07/24/24 Logged (Plavix) 10:00 Date of Service: Jul 23, 2024 Billing Provider: ANA COYLE MD Common Visit Codes: [id number] INP/OBS CARE(MOD) ANA COYLE MD Jul 23, 2024 17:43
[2024-07-23] MEDS: CLOPIDOGREL BISULFATE 75 MG TAB PO ONE (18:32)
[2024-07-23] MEDS: FINASTERIDE 5 MG TAB PO ONE (18:33)
[2024-07-23] MEDS: LOSARTAN POTASSIUM 25 MG TAB PO ONE (18:33)
--- NOTE | 2024-07-23 18:47 | DVHPN2 ---
Progress Note Date Seen: Jul 23, 2024 Medical Necessity Reason Pt with a Central, PICC or Fol: No Subjective Patient reports: Other Objective vital signs Vital Sign Date Time Temp Pulse Resp B/P (MAP) Pulse Ox O2 Delivery O2 Flow Rate FiO2 07/23/24 18:33 135/66 07/23/24 16:53 97.8 68 16 97 97.8 07/23/24 08:00 Room Air* 0 21 Total Intake and Output 07/22/24 07/22/24 07/23/24 15:00 23:00 07:00 Intake Total 420 ml 60 ml 500 ml Balance 420 ml 60 ml 500 ml medications Current Medications Medications Dose Ordered Sig/Porsha Route Start Time Stop Time Status Last Admin Dose Admin Sodium Chloride 1,000 ml @ 60 mls/hr [id number] IV 07/22/24 07:15 07/23/24 17:17 60 MLS/HR Acetaminophen/ Hydrocodone Bitart 1 tab Q4HP PRN PO 07/22/24 07:15 Ondansetron HCl 4 mg Q4HP PRN IV 07/22/24 07:15 Acetaminophen 650 mg Q6HP PRN PO 07/22/24 07:15 Ceftriaxone Sodium 50 ml @ 100 mls/hr DAILY@09 IV 07/23/24 09:00 07/23/24 09:58 100 MLS/HR Tamsulosin HCl 0.4 mg QPM PO 07/22/24 18:00 07/23/24 17:16 0.4 MG Hydralazine HCl 10 mg Q6HP PRN IV 07/22/24 10:45 Enoxaparin Sodium 40 mg DAILY SC 07/24/24 10:00 Losartan Potassium 25 mg DAILY PO 07/24/24 10:00 Atorvastatin Calcium 20 mg HS PO 07/23/24 22:00 Finasteride 5 mg DAILY PO 07/24/24 10:00 Brimonidine Tartrate 1 drop BID EACHEYE 07/23/24 22:00 Latanoprost 1 drop HS EACHEYE 07/23/24 22:00 Clopidogrel Bisulfate 75 mg DAILY PO 07/24/24 10:00 Examination: GENERAL:Normal, CVS:Normal, NEURO:Abnormal laboratory and microbiology Laboratory Tests 07/23/24 07:33 Test 07/23/24 07:33 Range/Units Serum Glucose 88 74-106 mg/dL Microbiology Date/Time Source Procedure Growth Status 07/21/24 20:55 Blood Blood Culture - Preliminary NO GROWTH AFTER 24 HOURS OF INCUBATION. Resulted Problem List/Assessment/Plan Problem List/Assessment/Plan Acute kidney injury likely hemodynamic Baseline renal function is unknown Altered mental status jerky movements htn renal function stable given baseline unknown cannot determine if stable Neurologic workup BP optimization eval of PPM to see if firing Avoid hypotension Strict Is&Os CT imaging unremarkable for any kidney pathology Avoid nonsteroidal anti-inflammatory drugs and avoid contrast agents Plan discussed with: Patient STALIN WOLF MD Jul 23, 2024 18:47
--- NOTE | 2024-07-23 20:26 | DVHSR ---
APPROVED REPORT EXAM: Two-dimensional and M-mode echocardiogram with Doppler and color Doppler. Blood Pressure: 126/55 mmHg INDICATION PM Surgery/Intervention Pacemaker: RISK [employer]CTORS Height: 5'11", Weight: 169 DIMENSIONS LVDd4.5 (3.8-5.7cm)LA (2D)3.8 (1.9-4.0cm)Aortic Root3.4 (2.0-3.7cm) LVDs2.9 (2.5-4.0cm)LA (MM) (1.9-4.0cm)Aortic Cusp Exc1.6 (1.5-2.0cm) EF (%) 60.0 (55-70%)Rt. Atrium3.7 (1.9-4.0cm)Asc. Aorta cm IVSd1.3 (0.7-1.1cm)RV (D) (1.8-2.4cm) PWd1.3 (0.7-1.1cm) Mitral Valve MitralMitral Stenosis E wave0.68m/sMV Mean GR.mmHg A wave0.99m/sMV Peak GR.mmHg E/A ratio0.72D MVAcm2 DECEL [id number] 1/2 Timems Aortic Valve Aortic ValveAortic Stenosis V10.90m/Solitario Mean GR.5mmHg V21.49m/Solitario Peak GR.9mmHg LVOT Diameter2.1 (1.8-2.4cm)Doppler AVA2.09cm2 Pulmonic Valve V21.09m/s Tricuspid Valve TR Velocity3.10m/s [id number] LEFT VENTRICLE The left ventricle is normal size. There is mildconcentric left ventricular hypertrophy. The left ventricle is normal in structure and function, LVEF is 55-60%. Mild diastolic dysfunction. Normal wall motion. RIGHT VENTRICLE The right ventricle is normal size. The right ventricular systolic function is normal. There is a pacemaker lead in the right ventricle. ATRIA The left atrial size is normal. The right atrium size is normal. MITRAL VALVE The mitral valve is grossly normal. There is no mitral valve regurgitation noted. PULMONIC VALVE The pulmonic valve is not well visualized. TRICUSPID VALVE The tricuspid valve is grossly normal. There is mild tricuspid regurgitation. AORTIC VALVE The aortic valve is trileaflet. No aortic regurgitation is present. GREAT VESSELS The aortic root is normal size. PERICARDIAL EFFUSION No evidence of pericardial effusion. Conclusion The left ventricle is normal size. There is mildconcentric left ventricular hypertrophy. The left clifford tricle is normal in structure and function, LVEF is 55-60%. Mild diastolic dysfunction. Normal wall m otion. The right ventricle is normal size. The right ventricular systolic function is normal. The left and right atrial size is normal. No significant valvular abnormalities. No evidence of pericardial effusion.
[2024-07-23] MEDS: ATORVASTATIN 20 MG TAB PO SCH (21:44)
[2024-07-23] MEDS: BRIMONIDINE 0.2% OPTH Soln 5ml EACHEYE SCH (21:45)
[2024-07-23] MEDS: LATANOPROST 0.005 % OPTH(EYE) SOL 2.5ML EACHEYE SCH (21:47)
[2024-07-24] VITALS (7 sets, daily range): BP systolic 100–139; BP diastolic 45–60; PULSE 57–67; RESP 16–18; TEMP 97.5–98.6; O2SAT 93–97
[2024-07-24] MEDS: FINASTERIDE 5 MG TAB PO SCH (09:18)
[2024-07-24] MEDS: LOSARTAN POTASSIUM 25 MG TAB PO SCH (09:19)
[2024-07-24] MEDS: ENOXAPARIN SOD 40 MG/0.4 ML SYRINGE SC SCH (09:19)
[2024-07-24] MEDS: CLOPIDOGREL BISULFATE 75 MG TAB PO SCH (09:19)
--- NOTE | 2024-07-24 12:20 | DVHPN2 ---
Subjective denies any cough/denies any complaints/c/o constipation Changes from previous H/P or p: No Changes Eyes: No Pain, No Vision change, No Conjunctivae inflammation, No Eyelid inflammation, No Other, No Redness ENT: No Ear pain, No Ear discharge, No Nose pain, No Nose discharge, No Nose congestion, No Mouth pain, No Mouth swelling, No Throat pain, No Throat swelling, No Other Cardiovascular: No Chest Pain, No Palpitations, No Orthopnea, No Paroxysmal Noc. Dyspnea, No Edema, No Lt Headedness, No Other Respiratory: No Cough, No Dry, No Shortness of breath, No SOB with excertion, No Wheezing, No Hemoptysis, No Pleuritic Pain, No Sputum, No Other Gastrointestinal: No Nausea, No Vomiting, No Abdominal Pain, No Diarrhea, No Constipation, No Melena, No Hematochezia, No Other Genitourinary: No Dysuria, No Frequency, No Incontinence, No Hematuria, No Retention, No Other Musculoskeletal: No other, No neck pain, No shoulder pain, No arm pain, No back pain, No hand pain, No leg pain, No foot pain Skin: No Rash, No Lesions, No Jaundice, No Bruising, No Other Objective Vitals Vital Signs Date Time Temp Pulse Resp B/P (MAP) Pulse Ox O2 Delivery O2 Flow Rate FiO2 07/24/24 09:19 121/45 07/24/24 09:00 98.1 67 18 93 98.1 07/24/24 08:00 Room Air* 0 21 Intake/Output Intake and Output 07/24/24 07:00 Intake Total 1900 ml Balance 1900 ml Intake Oral 1250 ml IV Total 650 ml # Voids 5 # Bowel Movements 1 General Appearance: Alert, Oriented X3, Cooperative, No acute distress Lungs: Clear to auscultation Cardiovascular: Regular rate, Normal S1, Normal S2 Abdomen: Normal bowel sounds, Soft, No tenderness, No hepatospenomegaly Musculoskeletal: Normal sensory function, Normal motor function Neuro: Normal gait, Normal speech, Strength at 5/5 X4 ext, Normal tone, S ensation intact, Cranial nerves 3-12 NL Psych/Mental Status: Mental status NL, Mood NL Medications Current Medications Medications Dose Ordered Sig/Porsha Route Start Time Stop Time Status Last Admin Dose Admin Sodium Chloride 1,000 ml @ 60 mls/hr [id number] IV 07/22/24 07:15 07/24/24 09:15 60 MLS/HR Acetaminophen/ Hydrocodone Bitart 1 tab Q4HP PRN PO 07/22/24 07:15 Ondansetron HCl 4 mg Q4HP PRN IV 07/22/24 07:15 Acetaminophen 650 mg Q6HP PRN PO 07/22/24 07:15 Ceftriaxone Sodium 50 ml @ 100 mls/hr DAILY@09 IV 07/23/24 09:00 07/24/24 09:20 100 MLS/HR Tamsulosin HCl 0.4 mg QPM PO 07/22/24 18:00 07/23/24 17:16 0.4 MG Hydralazine HCl 10 mg Q6HP PRN IV 07/22/24 10:45 Enoxaparin Sodium 40 mg DAILY SC 07/24/24 10:00 07/24/24 09:19 40 MG Losartan Potassium 25 mg DAILY PO 07/24/24 10:00 07/24/24 09:19 25 MG Atorvastatin Calcium 20 mg HS PO 07/23/24 22:00 07/23/24 21:44 20 MG Finasteride 5 mg DAILY PO 07/24/24 10:00 07/24/24 09:18 5 MG Brimonidine Tartrate 1 drop BID EACHEYE 07/23/24 22:00 07/23/24 21:45 1 DROP Latanoprost 1 drop HS EACHEYE 07/23/24 22:00 07/23/24 21:47 1 DROP Clopidogrel Bisulfate 75 mg DAILY PO 07/24/24 10:00 07/24/24 09:19 75 MG Laboratory Results Laboratory Tests 07/23/24 07:33 Urinalysis Test 07/22/24 04:25 Urine Color Light-yellow (Yellow) Urine Clarity Clear (Clear) Urine pH 7.5 (5.0-9.0) Urine Specific [place] 1.016 (1.001-1.035) Urine Protein Negative (Negative) Urine Ketones Negative (Negative) Urine Blood Negative /uL (Negative) Urine Nitrite Negative (Negative) Urine Bilirubin Negative (Negative) Urine Urobilinogen Normal mg/dL (Negative) Urine Leukocyte Esterase Negative /uL (Negative) Urine RBC <1 /hpf (0 - 3) Urine WBC 1 /hpf (0 - 3) Urine Squamous Epithelial Cells Few /hpf (<5) Urine Bacteria None seen /hpf (None Seen) Urine Mucus Few (None Seen) Urine Glucose Normal mg/dL (Normal) Microbiology Microbiology Date/Time Source Procedure Growth Status 07/21/24 20:55 Blood Blood Culture - Preliminary NO GROWTH AFTER 48 HOURS OF INCUBATION. Resulted Labs and/or images reviewed: Labs reviewed by me, Image(s) reviewed by me Assessment/Plan Assessment/Plan ? jerky movements- no associated symptoms of seizures/seen by neuro on line today/notes pending//awiting clerance by neurology- no notes by online ske team/ is expected to be here tommorrow pacemaker status- awaiting interrogation/clerance by cardiology htn bph Plan discussed with: Patient, Other My Orders Orders - ANA COYLE MD Procedure Category Date Status Time Losartan Tablet PHA 07/24/24 In Process (Cozaar Tablet) 10:00 Atorvastatin (Lipitor) PHA 07/23/24 In Process 22:00 Finasteride Tablet PHA 07/24/24 In Process (Proscar Tablet) 10:00 Brimonidine 0.2% Opth PHA 07/23/24 In Process Soln (Alphagan 0.2 22:00 Latanoprost (Xalatan) PHA 07/23/24 In Process 22:00 Clopidogrel Bisulfate PHA 07/24/24 In Process (Plavix) 10:00 Docusate Sodium PHA 07/24/24 Verified Capsule (Colace 22:00 Lactulose Oral PHA 07/24/24 Verified 18:00 Bisacodyl Suppository PHA 07/24/24 Verified (Dulcolax Supposit 12:30 Date of Service: Jul 24, 2024 Billing Provider: ANA COYLE MD Common Visit Codes: [id number] INP/OBS CARE(MOD) ANA COYLE MD Jul 24, 2024 12:20
--- NOTE | 2024-07-24 12:20 | DVHPN2 ---
Progress Note Date Seen: Jul 24, 2024 Medical Necessity Reason Pt with a Central, PICC or Fol: No Subjective Review of Systems: HEENT:Normal Objective vital signs Vital Sign Date Time Temp Pulse Resp B/P (MAP) Pulse Ox O2 Delivery O2 Flow Rate FiO2 07/24/24 09:19 121/45 07/24/24 09:00 98.1 67 18 93 98.1 07/24/24 08:00 Room Air* 0 21 Total Intake and Output 07/23/24 07/23/24 07/24/24 15:00 23:00 07:00 Intake Total 1550 ml 350 ml Balance 1550 ml 350 ml medications Current Medications Medications Dose Ordered Sig/Porsha Route Start Time Stop Time Status Last Admin Dose Admin Sodium Chloride 1,000 ml @ 60 mls/hr [id number] IV 07/22/24 07:15 07/24/24 09:15 60 MLS/HR Acetaminophen/ Hydrocodone Bitart 1 tab Q4HP PRN PO 07/22/24 07:15 Ondansetron HCl 4 mg Q4HP PRN IV 07/22/24 07:15 Acetaminophen 650 mg Q6HP PRN PO 07/22/24 07:15 Ceftriaxone Sodium 50 ml @ 100 mls/hr DAILY@09 IV 07/23/24 09:00 07/24/24 09:20 100 MLS/HR Tamsulosin HCl 0.4 mg QPM PO 07/22/24 18:00 07/23/24 17:16 0.4 MG Hydralazine HCl 10 mg Q6HP PRN IV 07/22/24 10:45 Enoxaparin Sodium 40 mg DAILY SC 07/24/24 10:00 07/24/24 09:19 40 MG Losartan Potassium 25 mg DAILY PO 07/24/24 10:00 07/24/24 09:19 25 MG Atorvastatin Calcium 20 mg HS PO 07/23/24 22:00 07/23/24 21:44 20 MG Finasteride 5 mg DAILY PO 07/24/24 10:00 07/24/24 09:18 5 MG Brimonidine Tartrate 1 drop BID EACHEYE 07/23/24 22:00 07/23/24 21:45 1 DROP Latanoprost 1 drop HS EACHEYE 07/23/24 22:00 07/23/24 21:47 1 DROP Clopidogrel Bisulfate 75 mg DAILY PO 07/24/24 10:00 07/24/24 09:19 75 MG Docusate Sodium 100 mg BID PO 07/24/24 22:00 UNV Lactulose 30 ml Q6HR PO 07/24/24 18:00 UNV Examination: GENERAL:Normal laboratory and microbiology Laboratory Tests 07/23/24 07:33 Test 07/23/24 07:33 Range/Units Serum Glucose 88 74-106 mg/dL Microbiology Date/Time Source Procedure Growth Status 07/21/24 20:55 Blood Blood Culture - Preliminary NO GROWTH AFTER 48 HOURS OF INCUBATION. Resulted Problem List/Assessment/Plan Problem List/Assessment/Plan Acute kidney injury likely hemodynamic Baseline renal function is unknown Altered mental status jerky movements htn pending labs today, yesterday cr trend was more stable BP optimization has improved eval of PPM to see if firing Avoid hypotension Strict Is&Os CT imaging unremarkable for any kidney pathology Avoid nonsteroidal anti-inflammatory drugs and avoid contrast agents Plan discussed with: Patient My Orders My Orders Orders - STALIN WOLF MD Procedure Category Date Status Time Basic Metabolic Panel LAB 07/25/24 Verified 04:00 Basic Metabolic Panel LAB 07/24/24 Verified 12:19 STALIN WOLF MD Jul 24, 2024 12:20
[2024-07-24] MEDS ORDERED: BISACODYL 10 MG RECT SUPP PR ONE (14:45)
[2024-07-24 14:46] LABS: Chloride 106 mmol/L (98-107); Potassium 3.7 mmol/L (3.5-5.1); Sodium 137 mmol/L (136-145)
[2024-07-24 14:47] LABS: Anion Gap 7 (5-15); Calcium 9.2 mg/dL (8.7-10.4); Carbon Dioxide 24 mmol/L (20-31)
[2024-07-24 14:52] LABS: BUN/Creatinine Ratio 14.4 (10.0-20.0)
[2024-07-24 14:56] LABS: Blood Urea Nitrogen 24 mg/dL (9-23); Glucose 139 mg/dL (74-106)
[2024-07-24] MEDS: LACTULOSE 20Gm/30ML SOLN PO SCH (17:03)
[2024-07-24] MEDS: DOCUSATE SOD 100 MG CAP PO SCH (21:18)
[2024-07-25 01:00] VITALS: BP 117/51; PULSE 61; RESP 19; TEMP 98.6; O2SAT 97
[2024-07-25 05:00] VITALS: BP 129/60; PULSE 66; RESP 18; TEMP 97.8; O2SAT 98
[2024-07-25 07:23] LABS: Potassium 3.9 mmol/L (3.5-5.1); Sodium 138 mmol/L (136-145)
[2024-07-25 07:24] LABS: Anion Gap 8 (5-15); Carbon Dioxide 21 mmol/L (20-31); Chloride 109 mmol/L (98-107)
[2024-07-25 07:25] LABS: Calcium 8.8 mg/dL (8.7-10.4)
[2024-07-25 07:29] LABS: BUN/Creatinine Ratio 14.1 (10.0-20.0); Blood Urea Nitrogen 20 mg/dL (9-23); Glucose 83 mg/dL (74-106)
[2024-07-25 08:00] VITALS: PULSE 62
[2024-07-25 08:37] VITALS: BP 143/60; PULSE 63; RESP 16; TEMP 98.5; O2SAT 95
[2024-07-25 12:51] VITALS: BP 118/61; PULSE 62; RESP 16; TEMP 98.1; O2SAT 97
--- NOTE | 2024-07-25 14:33 | DVHDS2 ---
Discharge Summary Date of Admission Jul 22, 2024 at 07:03 Date of Discharge: Jul 25, 2024 Labs/Diagnostic Data: Laboratory Results Test 07/25/24 06:05 07/23/24 07:33 07/22/24 09:16 07/22/24 04:25 Sodium Level 138 mmol/L (136-145) Potassium Level 3.9 mmol/L (3.5-5.1) Chloride Level 109 mmol/L (98-107) Carbon Dioxide Level 21 mmol/L (20-31) Anion Gap 8 (5-15) Blood Urea Nitrogen 20 mg/dL (9-23) Creatinine 1.42 mg/dL (0.700-1.30) Glomerular Filtration Rate Calc 48 mL/min (>90) BUN/Creatinine Ratio 14.1 (10.0-20.0) Serum Glucose 83 mg/dL (74-106) Calcium Level 8.8 mg/dL (8.7-10.4) White Blood Count 4.9 10^3/uL (4.4-10.8) Red Blood Count 4.87 10^6/uL (4.5-5.90) Hemoglobin 11.8 g/dL (13.5-17.5) Hematocrit 36.9 % (41.0-53.0) Mean Corpuscular Volume 75.8 fL (80.0-100.0) Mean Corpuscular Hemoglobin 24.3 pg (28.0-32.0) Mean Corpuscular Hemoglobin Concent 32.0 g/dL (32.0-36.0) Red Cell Distribution Width 17.3 % (11.8-14.3) Platelet Count 140 10^3/uL (140-450) Mean Platelet Volume 8.2 fL (6.9-10.8) Neutrophils (%) (Auto) 65.1 % (37.0-80.0) Lymphocytes (%) (Auto) 21.9 % (10.0-50.0) Monocytes (%) (Auto) 9.6 % (0.0-12.0) Eosinophils (%) (Auto) 3.0 % (0.0-7.0) Basophils (%) (Auto) 0.4 % (0.0-2.0) Neutrophils # (Auto) 3.2 10 ^3/uL (1.6-8.6) Lymphocytes # (Auto) 1.1 10 ^3/uL (0.4-5.4) Monocytes # (Auto) 0.5 10 ^3/uL (0-1.3) Eosinophils # (Auto) 0.1 10 ^3/uL (0-0.8) Basophils # (Auto) 0 10 ^3/uL (0-0.2) Nucleated Red Blood Cells 0.0 % Total Bilirubin 0.4 mg/dL (0.2-1.0) Aspartate Amino Transferase (AST) 15 U/L (13-40) Alanine Aminotransferase (ALT) 11 U/L (7-40) Alkaline Phosphatase 58 U/L (46-116) Total Protein 5.8 g/dL (5.7-8.2) Albumin 3.5 g/dL (3.2-4.8) Erythrocyte Sedimentation Rate 4 mm/hr (0-20) C-Reactive Protein High Sensitivity 0.07 mg/dL (<1.0) Urine Color Light-yellow (Yellow) Urine Clarity Clear (Clear) Urine pH 7.5 (5.0-9.0) Urine Specific [place] 1.016 (1.001-1.035) Urine Protein Negative (Negative) Urine Ketones Negative (Negative) Urine Blood Negative /uL (Negative) Urine Nitrite Negative (Negative) Urine Bilirubin Negative (Negative) Urine Urobilinogen Normal mg/dL (Negative) Urine Leukocyte Esterase Negative /uL (Negative) Urine RBC <1 /hpf (0 - 3) Urine WBC 1 /hpf (0 - 3) Urine Squamous Epithelial Cells Few /hpf (<5) Urine Bacteria None seen /hpf (None Seen) Urine Mucus Few (None Seen) Urine Glucose Normal mg/dL (Normal) Test 07/21/24 20:55 Prothrombin Time 10.9 sec (9.3-11.8) Prothrombin Time INR 1.03 (0.9-1.15) Activated Partial Thromboplast Time 25.1 SEC (24.5-34.5) Lactic Acid Level 1.1 mmol/L (0.4-2.0) Magnesium Level 2.1 mg/dL (1.6-2.6) Other Laboratory Tests 07/25/24 06:05 07/23/24 07:33 Brief Hx & Hospital Course: see dictated note Condition at Discharge: Fair Final Diagnosis/Problems List aloc Discharge Disposition: Home Discharge Instruct/Medications Diet: Cardiac 2g Na,low cholest Activity: No Restrictions, As Tolerated Follow Up/Referral: fu with [facility] Medications: resume home meds Discharge Statement: "Patient was advised to return to the ER or call 911 if any headaches, dizziness, shortness of breath, chest pain, abdominal pain, bleeding, fevers, or worsening of medical condition. Patient was counseled about treatment plan, medications, possible side effects, patientverbalized understanding. All questions were answered to the best of my ability. This discharge took greater then 30 minutes in planning, reviewing documentation, counseling the patient, and discussing with other team members." ASSESSMENT ASSESSMENT Assessment aloc Date of Service: Jul 25, 2024 Billing Provider: ALLEN GRACE MD Common Visit Codes: 17545-BGF/OBS DISCH DAY >30min Secondary Visit Codes: 65341-XLEMINMF CARE PLAN 30 MINUTES ALLEN GRACE MD Jul 25, 2024 14:33
--- NOTE | 2024-07-25 15:21 | DVHDS ---
DATE OF DISCHARGE: 07/25/2024 HISTORY OF PRESENT ILLNESS: The patient is an 89-year-old gentleman who was admitted with history of jerky movements and diaphoresis and has history of hypertension, frequent UTIs and pacemaker. HOSPITAL COURSE: The patient was primarily seen by Dr. Razo. The patient had a CT of abdomen that showed prostatomegaly, a CT of head that was unremarkable. The patient had a chest x-ray that showed no acute infiltrates. The patient had a creatinine of 1.42. Echocardiogram showed ejection fraction of 55-60%. The patient's at this time wishes to have the patient discharged and follow up outpatient with [facility] with Neurology as well as Cardiology for a pacemaker check. The patient will resume his home medications at discharge. FINAL DIAGNOSES: Therefore, * Encephalopathy to rule out seizure disorder. * Hypertension. * Pacemaker. * Chronic kidney disease, stage IIIA. * Benign prostatic hypertrophy. ADVANCE CARE PLANNING: The patient is a full code. Time spent was 19 minutes. Discharge planning time taken was 37 minutes. MD UZAIR Gutierrez/JONNA TID: [id number] RECEIPT: [id number]
[2024-07-25 15:43] VITALS: BP 143/60
--- NOTE | 2024-07-25 16:12 | DVHPN2 ---
Progress Note Date Seen: Jul 25, 2024 Medical Necessity Reason Pt with a Central, PICC or Fol: No Subjective Patient reports: No new complaints Review of Systems: Deferred Objective vital signs Vital Sign Date Time Temp Pulse Resp B/P (MAP) Pulse Ox O2 Delivery O2 Flow Rate FiO2 07/25/24 12:51 98.1 62 16 118/61 (80) 97 98.1 07/25/24 08:00 Room Air* 0 21 Total Intake and Output 07/24/24 07/24/24 07/25/24 15:00 23:00 07:00 Intake Total 240 ml 1760 ml 350 ml Balance 240 ml 1760 ml 350 ml medications Current Medications Medications Dose Ordered Sig/Porsha Route Start Time Stop Time Status Last Admin Dose Admin Acetaminophen 650 mg Q6HP PRN PO 07/22/24 07:15 Ceftriaxone Sodium 50 ml @ 100 mls/hr DAILY@09 IV 07/23/24 09:00 07/25/24 09:26 100 MLS/HR Tamsulosin HCl 0.4 mg QPM PO 07/22/24 18:00 07/24/24 17:03 0.4 MG Hydralazine HCl 10 mg Q6HP PRN IV 07/22/24 10:45 Enoxaparin Sodium 40 mg DAILY SC 07/24/24 10:00 07/25/24 09:26 40 MG Losartan Potassium 25 mg DAILY PO 07/24/24 10:00 07/25/24 09:27 25 MG Atorvastatin Calcium 20 mg HS PO 07/23/24 22:00 07/24/24 21:18 20 MG Finasteride 5 mg DAILY PO 07/24/24 10:00 07/25/24 09:26 5 MG Brimonidine Tartrate 1 drop BID EACHEYE 07/23/24 22:00 07/25/24 09:26 1 DROP Latanoprost 1 drop HS EACHEYE 07/23/24 22:00 07/24/24 21:18 1 DROP Clopidogrel Bisulfate 75 mg DAILY PO 07/24/24 10:00 07/25/24 09:26 75 MG Docusate Sodium 100 mg BID PO 07/24/24 22:00 07/25/24 09:26 100 MG Lactulose 30 ml Q6HR PO 07/24/24 18:00 07/25/24 00:03 30 ML Examination: GENERAL:Normal, MSK:Normal, NEURO:Abnormal laboratory and microbiology Laboratory Tests 07/25/24 06:05 07/23/24 07:33 Test 07/25/24 06:05 Range/Units Serum Glucose 83 74-106 mg/dL Microbiology Date/Time Source Procedure Growth Status 07/21/24 20:55 Blood Blood Culture - Preliminary NO GROWTH AFTER 72 HOURS OF INCUBATION. Resulted Problem List/Assessment/Plan Problem List/Assessment/Plan Acute kidney injury likely hemodynamic Baseline renal function is unknown Bilateral renal cysts on CT scan Prostatomegaly on CT scan outpatient urology Altered mental status jerky movements htn Recommendations Stable renal function Plan discussed with: Patient YONATHAN FITZPATRICK MD Jul 25, 2024 16:12
== END 2024-07-25 16:15 | disposition home or self-care (01) | DRG 101 ==
LOC: EDSEX 19:31 → EDBD 19:31 → ER 19:31 → TELE 07-22 07:03 → TELE-WESTW 07-22 16:19
PROVIDERS: ADMIT Internal Medicine; ATTEND Internal Medicine
DX: G40.909 Epilepsy, unspecified, not intractable, without status epilepticus (principal); N17.9 Acute kidney failure, unspecified; N12 Tubulo-interstitial nephritis, not specified as acute or chronic; D69.6 Thrombocytopenia, unspecified; N40.0 Benign prostatic hyperplasia without lower urinary tract symptoms; N18.31 Chronic kidney disease, stage 3a; I12.9 Hypertensive chronic kidney disease with stage 1 through stage 4 chronic kidney disease, or unspecified chronic kidney disease; Z95.0 Presence of cardiac pacemaker; Z87.440 Personal history of urinary (tract) infections; Z79.899 Other long term (current) drug therapy
CPT/HCPCS: 36415; 70450; 71045; 74176; 80048; 80053; 81001; 83605; 83735; 85025; 85610; 85652; 85730; 86141; 87040; 93306; 99291; G0378